=== PATIENT | female | born 1995 | race Caucasian/White ===

== ENCOUNTER 2017-11-17 08:15 | Outpatient (CLI) | payer OTHER, BC | END 2017-11-17 11:48 | disposition home or self-care (01) | LOC: OBT 08:15 → L-D 08:15 → OBT 11:48 | DX: O62.9 Abnormality of forces of labor, unspecified (principal); Z3A.39 39 weeks gestation of pregnancy | CPT/HCPCS: 76818 ==

== ENCOUNTER 2017-11-18 17:17 | Outpatient (CLI) | payer OTHER ==
[2017-11-18] MEDS: HYDROCODONE/APAP (5/325) TAB PO (18:16)
== END 2017-11-18 20:35 | disposition home or self-care (01) ==
LOC: OBT 17:17 → L-D 17:18 → OBT 20:35
DX: O62.9 Abnormality of forces of labor, unspecified (principal); Z3A.39 39 weeks gestation of pregnancy
CPT/HCPCS: 76818

== ENCOUNTER 2017-11-23 19:01 | Outpatient (CLI) | payer OTHER | END 2017-11-23 22:12 | disposition home or self-care (01) | LOC: OBT 19:01 → L-D 19:01 → OBT 22:12 | DX: O48.0 Post-term pregnancy (principal); Z3A.40 40 weeks gestation of pregnancy | CPT/HCPCS: 76815 ==

== ENCOUNTER 2017-11-26 08:05 | Inpatient (IN) | payer OTHER ==
[2017-11-26] MEDS ORDERED: CARBOPROST 250 MCG INJ IM (09:00)
[2017-11-26] MEDS ORDERED: METHYLERGONOVINE 0.2 MG INJ IM (09:00)
[2017-11-26] MEDS ORDERED: OXYTOCIN 30 UNITS/LR 500 ML IV (09:00)
[2017-11-26] MEDS ORDERED: MISOPROSTOL 200 MCG TAB PR (09:00)
[2017-11-26] MEDS ORDERED: LIDOCAINE 1% (MPF) 30 ML INJ INJ (09:00)
[2017-11-26] MEDS ORDERED: BUTORPHANOL 2 MG INJ IV (09:00)
[2017-11-26 09:10] LABS: ADD MAN DIFF? NO
[2017-11-26] MEDS: LACTATED RINGER'S 1,000 ML IV* ×4 (09:13→20:13)
[2017-11-26 09:14] LABS: BASOPHILS % 0.3 % (0.0-2.0); EOSINOPHILS # 0.2 10^3/ul (0.0-0.5); EOSINOPHILS % 1.6 % (0.0-7.0); HEMATOCRIT 36.6 % (37.0-47.0); HEMOGLOBIN 12.5 g/dl (12.0-16.0); LYMPHOCYTES # 2.2 10^3/ul (0.8-2.9); LYMPHOCYTES % 21.6 % (15.0-51.0); MEAN CORPUSCULAR HGB CONC 34.2 g/dl (32.0-37.0); MEAN CORPUSCULAR VOLUME 93.6 fl (82.0-101.0); MEAN PLATELET VOLUME 12.2 fl (7.4-10.4); MONOCYTE # 0.8 10^3/ul (0.3-0.9); MONOCYTES % 8.3 % (0.0-11.0); NEUTROPHIL # 6.6 10^3/ul (1.6-7.5); NEUTROPHILS % 65.8 % (39.0-77.0); PLATELET COUNT 143 10^3/UL (140-415); RED BLOOD COUNT 3.91 10^6/ul (4.20-5.40); RED CELL DISTRIBUTION WIDTH 13.2 % (11.5-14.5)
[2017-11-26 09:16] LABS: INR 0.94; PROTIME 12.7 Sec (11.9-14.9)
[2017-11-26 09:48] LABS: HEPATITIS B SURFACE ANTIGEN NEGATIVE (NEGATIVE)
[2017-11-26] MEDS: MISOPROSTOL 25 MCG CAPSULE PO ×3 (09:54→18:39)
[2017-11-26 09:55] LABS: AMPHETAMINE/METHAMPHETAMINE Negative (NEGATIVE); BARBITURATES Negative (NEGATIVE); BENZODIAZEPINES Negative (NEGATIVE); CANNABINOIDS Negative (NEGATIVE); COCAINE Negative (NEGATIVE); OPIATES Negative (NEGATIVE)
[2017-11-26] MEDS ORDERED: FENTAnyl 2MCG/ML-ROPIV 0.2% 100 ML (15:27)
[2017-11-26] MEDS ORDERED: NALOXONE (0.4 MG/ML) INJ IV (16:30)
[2017-11-26] MEDS ORDERED: DIPHENHYDRAMINE 50 MG INJ IV (16:30)
[2017-11-26 19:09] LABS: RAPID PLASMA REAGIN NONREACTIVE (NR)
[2017-11-26] MEDS: ONDANSETRON 4 MG INJ IV (20:32)
[2017-11-27] MEDS: FENTAnyl 2MCG/ML-ROPIV 0.2% 100 ML BAG EPI ×2 (00:16→06:42)
[2017-11-27] MEDS: LACTATED RINGER'S 1,000 ML IV* (04:32)
[2017-11-27] MEDS: OXYTOCIN 30 UNITS/LR 500 ML IV ×2 (08:15→10:58)
[2017-11-27] MEDS: IBUPROFEN 600 MG TAB PO ×4 (08:33→23:56)
[2017-11-27] MEDS ORDERED: LACTATED RINGER'S 1,000 ML IV* (10:44)
[2017-11-27] MEDS ORDERED: DEXTROSE 5%-LR 1,000 ML IV (10:44)
[2017-11-27] MEDS ORDERED: MISOPROSTOL 200 MCG TAB PR (11:00)
[2017-11-27] MEDS ORDERED: METHYLERGONOVINE 0.2 MG INJ IM (11:00)
[2017-11-27] MEDS ORDERED: CARBOPROST 250 MCG INJ IM (11:00)
[2017-11-27] MEDS ORDERED: ACETAMINOPHEN 325 MG TAB PO (11:00)
[2017-11-27] MEDS ORDERED: OXYTOCIN 30 UNITS/LR 500 ML IV (11:00)
[2017-11-27] MEDS ORDERED: ZOLPIDEM 5 MG TAB PO (11:00)
[2017-11-27] MEDS ORDERED: DIBUCAINE 1% 30 GM OINT PR (11:00)
[2017-11-27] MEDS ORDERED: ONDANSETRON 4 MG INJ IV (11:00)
[2017-11-27] MEDS ORDERED: DIPHENHYDRAMINE 50 MG INJ IV (11:00)
[2017-11-27] MEDS: WITCH HAZEL/GLYCERIN PAD PR (12:38)
[2017-11-27] MEDS: LANOLIN 7 GM TUBE TOP (12:38)
[2017-11-27] MEDS: BENZOCAINE 20% 56 ML SPRAY TOP (12:38)
[2017-11-27] MEDS: DIPHTH/TET/ACEL PERTUSS (ADULT) 0.5 ML VIAL IM* (16:29)
[2017-11-27] MEDS: OXYCODONE/ASPIRIN (4.88/325) TAB PO ×2 (16:34→22:14)
[2017-11-28] MEDS: WITCH HAZEL/GLYCERIN PAD PR (01:28)
[2017-11-28] MEDS: BENZOCAINE 20% 56 ML SPRAY TOP (01:28)
[2017-11-28] MEDS ORDERED: MAGNESIUM HYDROXIDE 30ML CUP PO (03:00)
[2017-11-28] MEDS: IBUPROFEN 600 MG TAB PO ×3 (05:48→17:30)
[2017-11-28] MEDS: SENNA/DOCUSATE NA (8.6MG/50MG) TAB PO (09:14)
[2017-11-28 09:22] LABS: ADD MAN DIFF? NO
[2017-11-28 09:41] LABS: BASOPHILS % 0.1 % (0.0-2.0); EOSINOPHILS # 0.3 10^3/ul (0.0-0.5); EOSINOPHILS % 1.7 % (0.0-7.0); HEMATOCRIT 31.1 % (37.0-47.0); HEMOGLOBIN 10.2 g/dl (12.0-16.0); LYMPHOCYTES # 2.1 10^3/ul (0.8-2.9); LYMPHOCYTES % 14.1 % (15.0-51.0); MEAN CORPUSCULAR HEMOGLOBIN 30.8 pg (29.0-33.0); MEAN CORPUSCULAR HGB CONC 32.8 g/dl (32.0-37.0); MONOCYTE # 1.1 10^3/ul (0.3-0.9); MONOCYTES % 7.4 % (0.0-11.0); NEUTROPHIL # 11.3 10^3/ul (1.6-7.5); NEUTROPHILS % 75.1 % (39.0-77.0); PLATELET COUNT 116 10^3/UL (140-415); RED BLOOD COUNT 3.31 10^6/ul (4.20-5.40); RED CELL DISTRIBUTION WIDTH 13.4 % (11.5-14.5)
[2017-11-28 09:41] LABS: WHITE BLOOD COUNT 15.1 10^3/ul (4.8-10.8)
[2017-11-28] MEDS: OXYCODONE/ASPIRIN (4.88/325) TAB PO (21:11)
[2017-11-28] MEDS: MAGNESIUM HYDROXIDE 30ML CUP PO (21:52)
[2017-11-29] MEDS: IBUPROFEN 600 MG TAB PO ×3 (00:30→12:00)
[2017-11-29] MEDS ORDERED: DIPHTH/TET/ACEL PERTUSS (ADULT) 0.5 ML VIAL IM* (09:00)
[2017-11-29] MEDS: SENNA/DOCUSATE NA (8.6MG/50MG) TAB PO (09:51)
[2017-11-29] MEDS: MEASLES,MUMPS,RUBELLA VACCINE INJ SC* (10:38)
== END 2017-11-29 13:35 | disposition home or self-care (01) | DRG 775 ==
LOC: L-D 08:05 → PP1 11-27 11:16
PROC: 10E0XZZ Delivery of Products of Conception, External Approach (ICD-10-PCS; principal; 2017-11-27)
PROC: 3E0234Z Introduction of Serum, Toxoid and Vaccine into Muscle, Percutaneous Approach (ICD-10-PCS; 2017-11-29)
DX: O69.81X0 Labor and delivery complicated by cord around neck, without compression, not applicable or unspecified (principal); Z37.0 Single live birth; Z3A.40 40 weeks gestation of pregnancy; Z23 Encounter for immunization
CPT/HCPCS: 62319; 80307; 85025; 85610; 85730; 86592; 86850; 86900; 86901; 87340; 90715